=== PATIENT | male | born 1990 | race African-American/Black ===

== ENCOUNTER 2019-12-10 10:46 | Emergency (ER) | payer OTHER ==
[~2019-12-10] VITALS: Ht 170.2 cm; Wt 56.2 kg
[2019-12-10 11:22] VITALS: BP 111/64
--- NOTE | 2019-12-10 11:38 | NUR ---
PT BIB SELF C/O SUBJECTIVE FEVER, COUGH, BODYACHES X 3 DAYS PT DENIES N/V/D; SKIN IS INTACT, PALE/WARM/DRY; AAOX4, PERRL, WITH EVEN AND STEADY GAIT; LUNGS CLEAR BL, BREATHING UNLABORED; HR EVEN AND REGULAR, BL PERIPHERAL PULSES PRESENT; BS ACTIVE X4, NO TENDERNESS TO PALPATION, NO HEPATOSPLENOMEGALLY PALPATED, RESONANT TO PERCUSSION; PT DENIES ANY FEVER, CP, SOB AT THIS TIME; PT STATES 5/10 PAIN AT THIS TIME; VSS; PATIENT POSITIONED FOR COMFORT; HOB ELEVATED; BEDRAILS UP X2; BED DOWN.
[2019-12-10] MEDS ORDERED: KETOROLAC 60 MG/2 ML VIAL IM ONE (11:40)
[2019-12-10] MEDS ORDERED: ONDANSETRON 4 MG ODT PO ONE (11:40)
--- NOTE | 2019-12-10 12:11 | NUR ---
PO MEDS GIVEN-NADR AT THIS TIME
--- NOTE | 2019-12-10 12:40 | NUR ---
Patient discharged with v/s stable. Written and verbal after care instructions given and explained. Patient alert, oriented and verbalized understanding of instructions. Ambulatory with steady gait. All questions addressed prior to discharge. ID band removed. Patient advised to follow up with PMD. Rx of PROMETHAZINE, ACETAMINOPHEN, TAMIFLU & ZOFRAN given. Patient educated on indication of medication including possible reaction and side effects. Opportunity to ask questions provided and answered.
[2019-12-10 12:41] VITALS: BP 115/67
== END 2019-12-10 12:40 | disposition home or self-care (01) ==
LOC: MED 10:46
DX: B34.9 Viral infection, unspecified (principal); J45.909 Unspecified asthma, uncomplicated; Z88.8 Allergy status to other drugs, medicaments and biological substances
CPT/HCPCS: 96372; 99283; J1885; Q0162

== ENCOUNTER 2019-12-16 23:02 | Emergency (ER) | payer OTHER ==
[~2019-12-16] VITALS: Ht 167.6 cm; Wt 56.2 kg
--- NOTE | 2019-12-16 23:10 | NUR ---
AMBULATES TO BED 03 WITH UPRIGHT, STEADY GAIT.
[2019-12-16 23:17] VITALS: BP 121/74
--- NOTE | 2019-12-16 23:30 | NUR ---
29 YEAR OLD MALE STATES HE HAS HAD FLU X 1 WEEK. PATIENT STATES HE HAS NONRADIATING CHEST PAIN WITH COUGH. PT STATES HE HAS CONGESTION WITH BODY ACHES. DENIES NAUSEA AND VOMITTING. LUNGS CTABL, BREATHING EVEN AND UNLABORED. PATIENT AOX4. BED IN LOWEST POSITION, LOCKED, BED RAIL UPX1. PMH - ASTHMA, EPILEPSY ALLERGIES - MIKA
[2019-12-16] MEDS ORDERED: NACL 0.9% 1,000 ML IV ONE (23:40)
[2019-12-17 00:07] LABS: BASOPHILS # (AUTO) 0.1 K/uL (0.00-0.22); BASOPHILS % (AUTO) 0.7 % (0.0-2.0); EOSINOPHILS # (AUTO) 0.2 K/uL (0-0.4); EOSINOPHILS % (AUTO) 2.3 % (0.0-4.0); HEMATOCRIT 41.2 % (36-52); HEMOGLOBIN 13.6 g/dL (12.0-18.0); LYMPHOCYTES # (AUTO) 2.5 K/uL (2.0-11.5); LYMPHOCYTES % (AUTO) 26.8 % (20.5-51.1); MEAN CORPUSCULAR HEMOGLOBIN 31 pg (27-31); MEAN CORPUSCULAR HGB CONC 33 g/dL (33-37); MEAN CORPUSCULAR VOLUME 93.3 fL (80-94); MONOCYTES # (AUTO) 1.3 K/uL (0.8-1.0); MONOCYTES % (AUTO) 13.7 % (1.7-9.3); NEUTROPHILS # (AUTO) 5.3 K/uL (1.8-7.7); NEUTROPHILS % (AUTO) 56.5 % (42.2-75.2); PLATELET COUNT (AUTO) 289 K/uL (140-450); RED BLOOD CELL COUNT(AUTO) 4.42 MIL/uL (4.20-6.10); RED CELL DISTRIBUTION WIDTH 13.4 % (11.6-13.7); WHITE BLOOD COUNT (AUTO) 9.4 K/uL (4.8-10.8)
[2019-12-17] MEDS ORDERED: KETOROLAC 30 MG/ML VIAL IVP ONE (00:10)
[2019-12-17 00:22] LABS: ALBUMIN 3.2 g/dL (3.4-5.0); ANION GAP 10.8 (8-16); CARBON DIOXIDE 32.3 mmol/L (21-32); CREATININE 1.1 mg/dL (0.7-1.3); POTASSIUM 5.1 mmol/L (3.5-5.1); TOTAL BILIRUBIN 0.4 mg/dL (0.0-1.0)
[2019-12-17] MEDS ORDERED: cefTRIAXone 1,000 MG VIAL ONE (00:26)
[2019-12-17 01:05] VITALS: BP 116/71
--- NOTE | 2019-12-17 01:05 | NUR ---
Patient discharged with v/s stable. He states relief. Written and verbal after care instructions given and explained. Patient alert, oriented and verbalized understanding of instructions. Ambulatory with steady gait. All questions addressed prior to discharge. ID band removed. Patient advised to follow up with PMD. Rx of Promethazine with Codeine and Levaquin given. Patient educated on indication of medication including possible reaction and side effects. Opportunity to ask questions provided and answered.
== END 2019-12-17 01:05 | disposition home or self-care (01) ==
LOC: MED 23:02
DX: J18.9 Pneumonia, unspecified organism (principal); J45.909 Unspecified asthma, uncomplicated; Z88.1 Allergy status to other antibiotic agents
CPT/HCPCS: 36415; 71045; 80053; 83690; 85025; 87804; 96365; 96375; 99284; J0696; J1885; J7030